=== PATIENT | male | born 1980 | race Caucasian/White ===

== ENCOUNTER 2016-04-08 15:22 | Inpatient (IN) | payer OTHER ==
[~2016-04-08] VITALS: Ht 175.3 cm; Wt 65.8 kg
[2016-04-08 15:37] LABS: EOSINOPHIL (%) 1.9 % (0-5); EOSINOPHIL COUNT 0.2 K/uL (0-0.3); HEMATOCRIT 44.2 % (38.0-50.0); IMMATURE GRANULOCYTE (%) 0.1 % (0.0-0.7); IMMATURE GRANULOCYTE COUNT 0.1 K/uL; LYMPHOCYTE COUNT 2.8 K/uL (1.0-2.8); MCH 31.7 PG (29.0-34.0); MCHC 35.5 G/DL (30.0-36.0); MCV 89.1 FL (86-99); MEAN PLAT.VOLUME 9.9 uM^3 (9.0-12.4); MONOCYTE (%) 10.5 % (3-12); MONOCYTE COUNT 0.9 K/uL (0-0.8); NEUTROPHIL (%) 53.2 % (45-76); NEUTROPHIL COUNT 4.4 K/uL (1.8-6.4); PLATELET COUNT 230 K/uL (156-360); RBC DIS.WIDTH-CV 11.9 % (11.8-14.6); RBC DIS.WIDTH-SD 37.4 % (39-53); RED BLOOD COUNT 4.96 M/uL (4.00-5.50); WHITE BLOOD COUNT 8.3 K/uL (4.1-10.2)
[2016-04-08 15:38] LABS: CREATININE 1.3 mg/dL (0.6-1.3); POTASSIUM 3.6 mEq/L (3.7-5.4)
[2016-04-08 15:48] LABS: CHLORIDE 103 mEq/L (99-109); POTASSIUM 3.9 mEq/L (3.7-5.4); SODIUM 140 mEq/L (136-147)
[2016-04-08 15:50] LABS: GLUCOSE 132 mg/dL (70-99)
[2016-04-08 15:51] LABS: ANION GAP 14 MEQ/L (2-14)
[2016-04-08 15:53] LABS: SERUM ETHYL ALCOHOL < 10 mg/dL
[2016-04-08 15:54] LABS: GFR ESTIMATE (CALCULATED) 56 mL/min/
[2016-04-08 15:55] LABS: UREA NITROGEN (BUN) 21 mg/dL (9-23)
[2016-04-08 16:02] LABS: AMYLASE 478 IU/L (1-118)
[2016-04-08 16:09] LABS: LIPASE 1476 U/L (1.0-51.0)
[2016-04-08] MEDS ORDERED: BRINTELLIX20 MG PO (16:20)
[2016-04-08 17:33] LABS: TOTAL BILIRUBIN 0.8 mg/dL (0.0-1.0)
[2016-04-08 17:34] LABS: ALKALINE PHOSPHATASE 77 IU/L (3-129)
[2016-04-08 17:37] LABS: DIRECT BILIRUBIN 0.2 mg/dL (0.0-0.3)
[2016-04-08 18:58] LABS: ADD MEDTOX COMMENT Y; AMPHETAMINE NEGATIVE (500 ng/mL); BARBITURATES NEGATIVE (200 ng/mL); BENZODIAZEPINES NEGATIVE (150 ng/mL); COCAINE NEGATIVE (150 ng/mL); INTERNAL CONTROLS VALID? YES; METHADONE NEGATIVE (200 ng/mL); METHAMPHETAMINE NEGATIVE (500 ng/mL); OPIATES (MORPHINE) PRESUMPTIVE POSITIVE (100 ng/mL); OXYCODONE NEGATIVE (100 ng/mL); PHENCYCLIDINE NEGATIVE (25 ng/mL); PROPOXYPHENE NEGATIVE (300 ng/mL); THC CANNABINOIDS NEGATIVE (50 ng/mL); TRICYCLIC ANTIDEPRESSANTS NEGATIVE (300 ng/mL)
[2016-04-08 19:00] VITALS: BP 125/70
[2016-04-08 19:13] LABS: C-REACTIVE PROTEIN 3.2 MG/L (0-10); TRIGLYCERIDES 391 MG/DL (Normal: <150)
[2016-04-08] MEDS ORDERED: ZANTAC150 MG PO (19:17)
[2016-04-08 19:34] LABS: ADD MIUA? YES; BILIRUBIN NEGATIVE; BLOOD NEGATIVE; COLOR YELLOW ((YELLOW)); GLUCOSE (STRIP) NEGATIVE; KETONES NEGATIVE; LEUKOCYTES LARGE; NITRITE NEGATIVE; PROTEIN (STRIP) NEGATIVE; UROBILINOGEN 0.2 MG/DL (0.2-1.0)
[2016-04-08 20:00] VITALS: BP 128/79
[2016-04-08 20:30] VITALS: BP 131/84
[2016-04-08 20:40] LABS: BACTERIA NONE SEEN /HPF; CASTS NONE SEEN /LPF; CRYSTALS NONE SEEN; EPITHELIAL CELLS NONE SEEN /HPF; MUCUS NONE SEEN /LPF; RED BLOOD CELLS NONE SEEN /HPF (0-5); UCUL ADDED? NO
[2016-04-08 21:02] VITALS: BP 130/77
[2016-04-09 00:18] VITALS: BP 139/90
[2016-04-09 05:11] VITALS: BP 158/90
[2016-04-09 05:47] LABS: EOSINOPHIL (%) 0.1 % (0-5); HEMATOCRIT 46.5 % (38.0-50.0); IMMATURE GRANULOCYTE (%) 0.2 % (0.0-0.7); LYMPHOCYTE COUNT 1.5 K/uL (1.0-2.8); MCH 32.3 PG (29.0-34.0); MCHC 34.8 G/DL (30.0-36.0); MCV 92.6 FL (86-99); MEAN PLAT.VOLUME 10.2 uM^3 (9.0-12.4); MONOCYTE (%) 7.8 % (3-12); NEUTROPHIL (%) 80.4 % (45-76); NEUTROPHIL COUNT 10.3 K/uL (1.8-6.4); PLATELET COUNT 230 K/uL (156-360); RBC DIS.WIDTH-CV 12.3 % (11.8-14.6); RBC DIS.WIDTH-SD 41.5 % (39-53); RED BLOOD COUNT 5.02 M/uL (4.00-5.50)
[2016-04-09 05:53] LABS: WHITE BLOOD COUNT 12.8 K/uL (4.1-10.2)
[2016-04-09 06:04] LABS: ALKALINE PHOSPHATASE 113 IU/L (3-129); ANION GAP 12 MEQ/L (2-14); CHLORIDE 101 MEQ/L (99-109); GFR ESTIMATE (CALCULATED) > 59 mL/min/; GLUCOSE 140 mg/dL (70-99); POTASSIUM 4.5 MEQ/L (3.7-5.4); SAMPLE HEMOLYSIS CHECK 2; SAMPLE ICTERIC CHECK 0; SAMPLE LIPEMIA CHECK 0; SODIUM 136 MEQ/L (136-147); UREA NITROGEN (BUN) 21 mg/dL (9-23)
[2016-04-09 10:00] VITALS: BP 161/99
[2016-04-09 10:08] LABS: INTER. NORMALIZED RATIO 1.1; PROTHROMBIN TIME 11.4 (9.2-11.2); PTT 24.6 (25-32)
[2016-04-09 10:37] LABS: LIPASE 2432 U/L (1.0-51.0)
[2016-04-09 10:38] LABS: AMYLASE 860 IU/L (1-118)
[2016-04-09 11:17] LABS: TROP-I INTERPRETATION NEGATIVE; TROPONIN-I 0.02 ng/mL (0.0-0.30)
[2016-04-09 17:19] VITALS: BP 148/86
[2016-04-09 19:55] VITALS: BP 167/104
[2016-04-09 23:54] VITALS: BP 158/88
[2016-04-10 03:32] VITALS: BP 166/99
[2016-04-10 07:14] LABS: ALKALINE PHOSPHATASE 94 IU/L (3-129); ANION GAP 9 MEQ/L (2-14); CHLORIDE 102 MEQ/L (99-109); GFR ESTIMATE (CALCULATED) > 59 mL/min/; LIPASE 1221 U/L (1.0-51.0); POTASSIUM 3.6 MEQ/L (3.7-5.4); SAMPLE HEMOLYSIS CHECK 0; SAMPLE ICTERIC CHECK 0; SAMPLE LIPEMIA CHECK 0; SODIUM 136 MEQ/L (136-147); TOTAL BILIRUBIN 2.1 MG/DL (0.0-1.0); UREA NITROGEN (BUN) 16 mg/dL (9-23)
[2016-04-10 07:20] LABS: GLUCOSE 81 mg/dL (70-99); HEMATOCRIT 37.9 % (38.0-50.0); MCH 32.2 PG (29.0-34.0); MCHC 34.6 G/DL (30.0-36.0); MCV 93.1 FL (86-99); RBC DIS.WIDTH-CV 12.6 % (11.8-14.6); RBC DIS.WIDTH-SD 42.7 % (39-53); RED BLOOD COUNT 4.07 M/uL (4.00-5.50); WHITE BLOOD COUNT 10.5 K/uL (4.1-10.2)
[2016-04-10 07:21] LABS: AMYLASE 638 IU/L (1-118)
[2016-04-10 07:42] VITALS: BP 141/89
[2016-04-10 08:03] LABS: MEAN PLAT.VOLUME 10.4 uM^3 (9.0-12.4)
[2016-04-10 08:05] LABS: PLATELET COUNT 149 K/uL (156-360)
[2016-04-10 17:03] VITALS: BP 149/89
[2016-04-10 23:59] VITALS: BP 132/79
[2016-04-11 04:21] VITALS: BP 158/89
[2016-04-11 05:41] LABS: HEMATOCRIT 35.2 % (38.0-50.0); MCH 31.5 PG (29.0-34.0); MCHC 33.5 G/DL (30.0-36.0); MCV 93.9 FL (86-99); MEAN PLAT.VOLUME 10.6 uM^3 (9.0-12.4); PLATELET COUNT 145 K/uL (156-360); RBC DIS.WIDTH-CV 12.3 % (11.8-14.6); RBC DIS.WIDTH-SD 41.9 % (39-53); RED BLOOD COUNT 3.75 M/uL (4.00-5.50); WHITE BLOOD COUNT 8.2 K/uL (4.1-10.2)
[2016-04-11 06:40] LABS: ALKALINE PHOSPHATASE 101 IU/L (3-129); ANION GAP 12 MEQ/L (2-14); CHLORIDE 101 MEQ/L (99-109); GFR ESTIMATE (CALCULATED) > 59 mL/min/; GLUCOSE 79 mg/dL (70-99); LIPASE 244 U/L (1.0-51.0); POTASSIUM 3.6 MEQ/L (3.7-5.4); SAMPLE HEMOLYSIS CHECK 0; SAMPLE ICTERIC CHECK 0; SAMPLE LIPEMIA CHECK 0; SODIUM 134 MEQ/L (136-147); TOTAL BILIRUBIN 1.7 MG/DL (0.0-1.0); UREA NITROGEN (BUN) 11 mg/dL (9-23)
[2016-04-11 06:46] LABS: AMYLASE 178 IU/L (1-118)
[2016-04-11 07:48] VITALS: BP 162/90
[2016-04-11 11:11] VITALS: BP 156/84
[2016-04-11 15:46] VITALS: BP 149/85
[2016-04-11 23:55] VITALS: BP 164/88
[2016-04-12 06:12] LABS: HEMATOCRIT 33.1 % (38.0-50.0); MCH 31.8 PG (29.0-34.0); MCHC 34.4 G/DL (30.0-36.0); MCV 92.2 FL (86-99); MEAN PLAT.VOLUME 10.3 uM^3 (9.0-12.4); PLATELET COUNT 172 K/uL (156-360); RBC DIS.WIDTH-CV 12.2 % (11.8-14.6); RBC DIS.WIDTH-SD 41.2 % (39-53); RED BLOOD COUNT 3.59 M/uL (4.00-5.50); WHITE BLOOD COUNT 7.3 K/uL (4.1-10.2)
[2016-04-12 06:41] LABS: ALKALINE PHOSPHATASE 109 IU/L (3-129); ANION GAP 13 MEQ/L (2-14); CHLORIDE 104 MEQ/L (99-109); GFR ESTIMATE (CALCULATED) > 59 mL/min/; GLUCOSE 92 mg/dL (70-99); POTASSIUM 3.5 MEQ/L (3.7-5.4); SAMPLE HEMOLYSIS CHECK 0; SAMPLE ICTERIC CHECK 0; SAMPLE LIPEMIA CHECK 0; SODIUM 138 MEQ/L (136-147); TOTAL BILIRUBIN 1.7 MG/DL (0.0-1.0); UREA NITROGEN (BUN) 6 mg/dL (9-23)
[2016-04-12 06:57] LABS: LIPASE 135 U/L (1.0-51.0)
[2016-04-12 07:17] LABS: AMYLASE 70 IU/L (1-118)
[2016-04-12 07:37] VITALS: BP 170/98
[2016-04-12 21:23] VITALS: BP 172/98
[2016-04-13 03:16] VITALS: BP 141/88
[2016-04-13 09:58] VITALS: BP 142/83
[2016-04-13 13:35] VITALS: BP 132/83
[2016-04-13 19:06] VITALS: BP 164/93
[2016-04-14] VITALS: BP 141/72
[2016-04-14 07:37] VITALS: BP 152/81
[2016-04-14 10:46] VITALS: BP 143/93
[2016-04-14 16:22] VITALS: BP 153/80
[2016-04-15] VITALS: BP 177/98
[2016-04-15 06:41] VITALS: BP 136/79
[2016-04-15 10:42] VITALS: BP 145/92
[2016-04-15] MEDS ORDERED: MOTRIN600 MG PO (11:03)
[2016-04-15] MEDS ORDERED: LOPRESSOR25 MG PO (11:03)
[2016-04-15] MEDS ORDERED: ENDOCET 5-3251 EACH PO (11:03)
== END 2016-04-15 13:46 | disposition home or self-care (01) | DRG 439 ==
LOC: TRA 15:22 → EDOF 18:01 → 5EAST 18:01 → 3EAST 18:01 → 5EAST 04-12 20:55
PROVIDERS: Emergency Medicine; Hospitalist
DX: K85.90 Acute pancreatitis without necrosis or infection, unspecified (principal); N17.9 Acute kidney failure, unspecified; I10 Essential (primary) hypertension; R00.0 Tachycardia, unspecified; R55 Syncope and collapse; S39.91XA Unspecified injury of abdomen, initial encounter; V47.5XXA Car driver injured in collision with fixed or stationary object in traffic accident, initial encounter; Y92.411 Interstate highway as the place of occurrence of the external cause; E87.6 Hypokalemia; N28.1 Cyst of kidney, acquired; E78.5 Hyperlipidemia, unspecified; F32.9 Major depressive disorder, single episode, unspecified; F90.9 Attention-deficit hyperactivity disorder, unspecified type; F17.210 Nicotine dependence, cigarettes, uncomplicated; Z90.49 Acquired absence of other specified parts of digestive tract
CPT/HCPCS: 70450; 71260; 72125; 72129; 72132; 74177; 74183; 80047; 80048; 80053; 80076; 81003; 82150; 83690; 84478; 84484; 84999; 85025; 85027; 85610; 85730; 86140; 86850; 86900; 86901; 93005; 99281; 99285; G0480; J0696; J1170; J1650; J2060; J2270; J2405; J2543; J7030; J7050; J7120